=== PATIENT | female | born 1950 | race Caucasian/White ===

== ENCOUNTER → 2017-04-29 | Outpatient (CLI) | payer OTHER, MEDICARE ==
[~2017-04-29] MED LIST: ASPI-715 PO; MULT-820 PO
--- NOTE | 2017-04-29 15:32 | RADIOLOGY IMAGING REPORT ---
FACILITY: [facility] PATIENT NAME: Yessi Freitas : 1950 MR: [id number] V: [id number] EXAM DATE: ORDERING PHYSICIAN: ABBEY SHEIKH TECHNOLOGIST: Location: [facility] Patient: Yessi Freitas : 1950 Visit/Account:[id number] Date of Sevice: 04/29/2017 DEXA Scan Clinical history: Seen osteoporosis. Comparison: DEXA scan from 02/13/2015. LUMBAR SPINE: The bone mineral density (BMD) measured from L1-L4 correlates with a Z-score of 0.8 and a T-score of -0.5 which is Normal as defined by the World Health Organization. The corresponding risk of fracture in the lumbar spine is 1-2 times increased compared with a young adult reference population. This v alue has increase by 3.3 % since the prior study. More than 5% change is considered significant. HIP: Bone mineral density (BMD) measured in the LEFT total hip region correlates with a Z-score -0.5 and a T-score of -1.5 which is osteopenia as defined by the World Health Organization. The corresponding risk of fracture in the hip is 3 times increased compared to a young adult reference population. This value has increase by 0.1 % since the prior study. More than 5% change is considered significant. T score left femoral neck -1.5 Bone mineral density (BMD) measured in the Femoral Neck region measures 0.833 g/cm?. IMPRESSION: 1. Lumbar spine: Normal. There has been 3.3% increase in the bone mineral density since the previou s exam. 2. Left Total Hip: Osteopenia. There has been 0.1% increase in the bone mineral density since the p revious exam. 3. Femoral Neck: Bone Mineral Density is 0.833 g/cm? The next DEXA scan of this patient should include the following sites: L1-L4 and the left hip. FRAX? WHO Fracture Risk Assessment Tool link: <http://www.shef.ac.uk/FRAX/tool.jsp?locationValue=9> PLEASE NOTE: 1) The World Health Organization defines low BMD as follows: T-score Normal > -1 Osteopenia < -1 and > -2.5 Osteoporosis < -2.5 without fractures Established osteoporosis < -2.5 with fractures 2) In general, you may wish to consider: Diagnosis Treatment Follow-up DEXA Normal BMD Prevention 2-3 years Osteopenia Prevention/therapy 1-2 years Osteoporosis Therapy Yearly 3) Fracture risk estimated from the T-score is more accurate for vertebral fractures (often spontane ous) than for hip fractures. Report Dictated By: Page Otero MD at 04/29/2017 3:26 PM Report E-Signed By: Page Otero MD at 04/29/2017 3:28 PM WSN:[id number]
--- NOTE | 2017-04-30 11:09 | RADIOLOGY IMAGING REPORT ---
FACILITY: [facility] PATIENT NAME: SHARMAINE THOMAS : [id number] MR: [id number] V: [id number] EXAM DATE: ORDERING PHYSICIAN: ABBEY SHEIKH TECHNOLOGIST: May Sweeney PROCEDURE:BILATERAL DIGITAL SCREENING MAMMOGRAM WITH CAD ASSISTED INTERPRETATION & 3D TOMOSYNTHESIS COMPARISON:Prior mammograms 04/22/16, 04/10/15, 04/07/14, 03/11/13, 01/01/12, 12/28/10 INDICATIONS:SCREENING FINDINGS: Moderately heterogeneous fibroglandular tissue is seen throughout the breasts. The parenchymal pattern has remained stable allowing for difference in mammographic technique & patient positioning. There is no evidence of malignant appearing mass, malignant appearing calcifications or other secondary sign of malignancy in either breast. DIAGNOSTIC CATEGORY 2--BENIGN FINDING. RECOMMENDATIONS: ROUTINE MAMMOGRAM AND CLINICAL EVALUATION. IMPRESSION: BIRADS 2 : Benign finding No significant abnormality is seen Dictated by: Page Otero M.D. on 04/29/2017 at 17:19 Transcribed by: DIANA on 04/30/2017 at 9:20 Approved by: Page Otero M.D. on 04/30/2017 at 11:08 [facility]
== END ==
LOC: MAMO 01:12
PROVIDERS: ATTEND Nurse Practitioner Family
DX: Z13.820 Encounter for screening for osteoporosis (principal); Z12.31 Encounter for screening mammogram for malignant neoplasm of breast; M85.88 Other specified disorders of bone density and structure, other site
CPT/HCPCS: 77063; 77067; 77080

== ENCOUNTER → 2017-07-10 | Outpatient (CLI) | payer MEDICARE, OTHER ==
--- NOTE | 2017-07-10 11:35 | EKG ---
FACILITY: [facility] PATIENT NAME: SHARMAINE THOMAS : [id number] MR: [id number] V: [id number] EXAM DATE: ORDERING PHYSICIAN: ABBEY SHEIKH TECHNOLOGIST: MARTHA Rubin Reason : WELCOME TO MEDICARE Blood Pressure : / mmHG Vent. Rate : 059 BPM Atrial Rate : 059 BPM P-R Int : 170 ms QRS Dur : 082 ms QT Int : 388 ms P-R-T Axes : 059 020 036 degrees QTc Int : 384 ms Sinus bradycardia Septal infarct , age undetermined Abnormal ECG No previous ECGs available Confirmed by GEETA MARSH ([id number]) on 07/11/2017 11:22:37 AM Referred By: KORI Confirmed By:GEETA MARSH
== END ==
LOC: RESP 11:22
PROVIDERS: ATTEND Nurse Practitioner Family
DX: Z00.00 Encounter for general adult medical examination without abnormal findings (principal); R94.31 Abnormal electrocardiogram [ECG] [EKG]
CPT/HCPCS: 93005

== ENCOUNTER → 2018-05-12 | Outpatient (CLI) | payer MEDICARE, OTHER ==
--- NOTE | 2018-05-13 08:49 | RADIOLOGY IMAGING REPORT ---
FACILITY: [facility] PATIENT NAME: SHARMAINE THOMAS : [id number] MR: [id number] V: [id number] EXAM DATE: [id number] ORDERING PHYSICIAN: ABBEY SHEIKH TECHNOLOGIST: May Sweeney PROCEDURE:BILATERAL DIGITAL SCREENING MAMMOGRAM WITH CAD ASSISTED INTERPRETATION & 3D TOMOSYNTHESIS COMPARISON:Prior mammograms 04/29/17, 04/22/16, 04/10/15, 04/07/14, 03/11/13, 01/01/12. INDICATIONS:screening FINDINGS: The breasts are heterogeneously dense which can obscure small masses. The parenchymal pattern has remained stable allowing for difference in mammographic technique & patient positioning. DIAGNOSTIC CATEGORY 1--NEGATIVE. RECOMMENDATIONS: ROUTINE MAMMOGRAM AND CLINICAL EVALUATION. IMPRESSION: BIRADS 1: Negative. No significant abnormality is seen. Dictated by: Page Otero M.D. on 05/12/2018 at 16:13 Transcribed by: DIANA on 05/13/2018 at 8:44 Approved by: Page Otero M.D. on 05/13/2018 at 8:48 [facility]
== END ==
LOC: MAMO 01:08
PROVIDERS: ATTEND Nurse Practitioner Family
DX: Z12.31 Encounter for screening mammogram for malignant neoplasm of breast (principal)
CPT/HCPCS: 77063; 77067

== ENCOUNTER 2018-07-22 00:19 | Day surgery (SDC) | payer MEDICARE, OTHER ==
[~2018-07-22] VITALS: Ht 172.7 cm; Wt 71.2 kg
[~2018-07-22 00:19] MED LIST changes: +ACET500T68 PO; +BIOT5000 PO; +CALC-515 PO; +CHOL10005 PO; +L.AC1CAP6 PO; +MELA1TAB38 PO; +OMEG-96 PO; +PRAV20TA65 PO; +RALO60TA12 PO; +S-AD200T5 PO; +[UNRECOGNIZED DRUG - CODE] PO
[2018-07-22] MEDS ORDERED: PROPOFOL EMUL(*) 10MG/ML 20 ML 20 ML ONE (07:04)
[2018-07-22 09:30] VITALS: BP 128/90
[2018-07-22] MEDS ORDERED: NORMOSOL R SOLN(*) 1000 ML BAG 1,000 ML IV PRN (10:00)
[2018-07-22] MEDS ORDERED: LIDOCAINE/SOD BICARB 8.4% SYR ID ONE (10:00)
[2018-07-22 11:15] VITALS: BP 120/87
--- NOTE | 2018-07-22 11:22 | Short(Outpt) Discharge Summary ---
Discharge Summary Reason for Hosp/Final Diag: (1) Family history of colorectal cancer Hospital Course & Plan: Colonoscopy with polypectomy x2 completed without problems. Recommend colonoscopy in 5 years. Departure Discharge to: Home, Self Care Discharge Instructions Home Meds Reported Medications L.acidoph & Paracasei,B.lactis (Probiotic) 1 Each Capsule, TAB PO DAILY 07/16/18 Acetaminophen (TYLENOL EXTRA STRENGTH) 500 Mg Tablet, 500 MG PO DAILY for PAIN, TAB 07/16/18 Melatonin (Melatonin) 1 Mg Tablet.er, 1 MG PO HS 07/16/18 S-Adenosylmethionine Sul Tosyl (OSMIN-E) 200 Mg Tablet, 200 MG PO DAILY 07/16/18 Cholecalciferol (Vitamin D3) (VITAMIN D3) 1,000 Unit Tablet, 2500 UNIT PO DAILY, TAB 07/16/18 Calcium Carbonate (TUMS) 200 Mg Tab.chew, 200 MG PO DAILY, TAB.CHEW 07/16/18 Calcium Carb/Vitamin D3/Vit K1 (Viactiv 650 mg-12.5 Mcg Chew) 650 Mg Calcium- 12.5 Mcg-40 Mcg Tab.chew, 650 MG PO DAILY 07/16/18 Biotin (Biotin) 5,000 Mcg Tab.rapdis, 5000 MCG PO DAILY 07/16/18 Monument-3 Fatty Acids/Fish Oil (OMEGA 3 1,000 MG SOFTGEL) 1 Each Capsule, 1 EACH PO QDAY, CAPSULE 07/16/18 Pravastatin Sodium (PRAVACHOL) 20 Mg Tablet, 10 MG PO QDAY, TAB 07/16/18 Raloxifene Hcl (EVISTA) 60 Mg Tablet, 60 MG PO QDAY 07/16/18 Discontinued Reported Medications Cholecalciferol (Vitamin D3) (VITAMIN D3) 1,000 Unit Tablet, 2500 PO DAILY, TAB 07/16/18 Diet: Regular Activity: As Tolerated Special Instructions: Your colonoscopy was completed without problems and your prep was excellent (Good Job!!). I removed 2 small polyps from your colon and they were sent to pathology. My office will call you in the next week or two to let you know what the polyps are but, in any case, your next colonoscopy should be in 5 years due to your family history. GEETA CRISTINA MD July 22, 2018 11:22
[2018-07-22 11:30] VITALS: BP 136/88
[2018-07-22 11:45] VITALS: BP 142/97
[2018-07-22 12:02] VITALS: BP 137/87
[2018-07-22 12:03] VITALS: BP 144/87
--- NOTE | 2018-07-22 12:20 | NUR ---
1130 SBAR REPORT WAS RECEIVED FROM Calvin TALAMANTES RN. 1135 PATIENT IS RESTING IN THE BED AND EATING ICECHIPS 1150 PATIENT BEGAN EATING PUDDING AND IS TOLERATING THIS WELL 1212 IV WAS DC'D WITH CATH INTACT. 1220 PATIENT WAS TAKEN OUT VIA WHEELCHAIR. LUNGS ARE CLEAR. BOWEL SOUNDS ARE HYPERACTIVE. SHE STATES HER HEADACHE PAIN IS 2/10 AFTER STANDING AND MOVING AROUND. DENIES ANY NAUSEA. SEE DISCHARGE ASSESSMENT
--- NOTE | 2018-07-22 12:20 | NUR ---
1204 IV WAS SALINE LOCKED AND PATIENT BEGAN DRINKING DRESSED
== END 2018-07-22 12:20 | disposition home or self-care (01) ==
LOC: OR 00:19
PROVIDERS: ATTEND Surgery
DX: Z12.11 Encounter for screening for malignant neoplasm of colon (principal); K63.5 Polyp of colon; Z80.0 Family history of malignant neoplasm of digestive organs
CPT/HCPCS: 00811; 45385; 88305; J2704

== ENCOUNTER → 2018-08-11 | Outpatient (CLI) | payer MEDICARE, OTHER ==
--- NOTE | 2018-08-11 07:54 | EKG ---
FACILITY: [facility] PATIENT NAME: SHARMAINE THOMAS : [id number] MR: [id number] V: [id number] EXAM DATE: ORDERING PHYSICIAN: FUAD MOSES TECHNOLOGIST: SARA Test Reason : PRE OP Blood Pressure : / mmHG Vent. Rate : 059 BPM Atrial Rate : 059 BPM P-R Int : 178 ms QRS Dur : 078 ms QT Int : 404 ms P-R-T Axes : 071 024 037 degrees QTc Int : 399 ms Sinus bradycardia Septal infarct (cited on or before 10-JUL-2017) No ST-T abnormalities When compared with ECG of 10-JUL-2017 11:21, No significant change was found Confirmed by YAMILEX HARDY ([id number]) on 08/11/2018 11:48:29 AM Referred By: AURELIA Confirmed By:YAMILEX HARDY
== END ==
LOC: LAB 07:22
PROVIDERS: ATTEND Orthopaedic Surgery
DX: Z01.812 Encounter for preprocedural laboratory examination (principal); Z01.810 Encounter for preprocedural cardiovascular examination; M81.0 Age-related osteoporosis without current pathological fracture; M19.90 Unspecified osteoarthritis, unspecified site; M17.11 Unilateral primary osteoarthritis, right knee; R00.1 Bradycardia, unspecified
CPT/HCPCS: 36415; 81001; 82040; 82247; 82310; 82374; 82435; 82565; 82947; 84075; 84132; 84155; 84295; 84450; 84460; 84520; 93005

== ENCOUNTER 2018-09-08 00:32 | Observation (INO) | payer MEDICARE, OTHER ==
--- NOTE | 2018-09-01 16:19 | NUR ---
PC TO [facility] RE: OR COCKTAIL CONTAINING TORADOL D/T PT'S NSAID ALLERGY. KIRAN CHECKED PT'S PREVEN SURGERY AT [facility], PT HAS NOT REC'D BEFORE, CHOSE TO GO WITH OR COCKTAIL WITHOUT TORADOL, PROVIDER AWARE. ORDER ENTERED.
[2018-09-07 15:22] LABS: INR 0.94
[2018-09-08] VITALS (16 sets, daily range): BP systolic 107–144; BP diastolic 67–101
[~2018-09-08] VITALS: Ht 172.7 cm; Wt 73.0 kg
[2018-09-08] MEDS ORDERED: fentaNYL CITR 100 MCG/2 ML AMP ONE (07:19)
[2018-09-08] MEDS ORDERED: PROPOFOL EMUL(*) 10MG/ML 20 ML 20 ML ONE (07:19)
[2018-09-08] MEDS ORDERED: ONDANSETRON 4 MG/2 ML VIAL ONE (07:19)
[2018-09-08] MEDS ORDERED: DEXAMETHASONE SOD 4 MG/ML VIAL ONE (07:19)
[2018-09-08] MEDS ORDERED: LIDOCAINE MPF 1% 5 ML VIAL ONE (07:19)
[2018-09-08] MEDS ORDERED: KETAMINE HCL-NS 50 MG/5 ML SYR ONE (07:22)
[2018-09-08] MEDS ORDERED: KETAMINE HCL 200 MG/20 ML MDV ONE (07:43)
[2018-09-08] MEDS ORDERED: NORMOSOL R SOLN(*) 1000 ML BAG 1,000 ML IV PRN (09:30)
[2018-09-08] MEDS ORDERED: PREGABALIN 150 MG CAPSULE PO ONE (09:30)
[2018-09-08] MEDS ORDERED: ceFAZolin(*) 2GM/D5W 50ML 50 ML IVPB ONE (09:30)
[2018-09-08] MEDS ORDERED: ACETAMINOPHEN 500 MG TAB PO ONE (09:30)
[2018-09-08] MEDS ORDERED: BACITRACIN 50000 UNIT/VIAL 100,000 UNIT in NS 0.9% 3000 ML IRRIGATION BAG 3,000 ML IR ONE (09:30)
[2018-09-08] MEDS ORDERED: cloNIDine EPIDUR INJ 100MCG/ML 40 MCG, ROPIVACAINE 0.5% 20 ML VIAL 25 ML, EPINEPHrine H... INJ ONE (09:30)
[2018-09-08] MEDS ORDERED: LIDOCAINE/SOD BICARB 8.4% SYR ID ONE (09:30)
[2018-09-08] MEDS ORDERED: CELECOXIB 200 MG CAP PO ONE (09:30)
[2018-09-08] MEDS ORDERED: FAMOTIDINE 20 MG TAB PO ONE (09:30)
[2018-09-08] MEDS ORDERED: MIDAZOLAM 2 MG/2 ML VIAL IVP PRN (09:30)
[2018-09-08] MEDS ORDERED: TRANEXAMIC AC 1000 MG/10ML SDV 1,000 MG in DEXTROSE 5% 50 ML BAG 50 ML IV ONE (09:30)
[2018-09-08] MEDS ORDERED: GLYCOPYRROLATE 0.2MG/ML 1 ML INJ ONE ×2 (10:53→13:46)
[2018-09-08] MEDS ORDERED: KETOROLAC 30 MG/ML VIAL ONE (11:43)
[2018-09-08] MEDS ORDERED: PROMETHAZINE 25 MG/ML 1 ML AMP IVP PRN (12:30)
[2018-09-08] MEDS ORDERED: diphenhydrAMINE 50 MG/ML VIAL IVP PRN (12:30)
[2018-09-08] MEDS ORDERED: ONDANSETRON 4 MG/2 ML VIAL IVP PRN (12:30)
[2018-09-08] MEDS ORDERED: FLUSH 10 ML SYR IVP PRN (12:30)
[2018-09-08] MEDS ORDERED: MAGNESIUM CITRATE 300 ML BTL PO PRN (12:30)
[2018-09-08] MEDS ORDERED: LR 1000 ML BAG 1000 ML IV PRN (12:30)
[2018-09-08] MEDS ORDERED: BISACODYL 10 MG SUPP PR PRN (12:30)
[2018-09-08] MEDS ORDERED: MAGNESIUM HYDROXIDE* 30ML UDCP PO PRN (12:30)
[2018-09-08] MEDS ORDERED: ZOLPIDEM TARTRATE 5 MG TAB PO PRN (12:30)
[2018-09-08] MEDS ORDERED: HYDROmorphone HCL 2 MG/ML SDV IVP PRN (12:30)
[2018-09-08] MEDS ORDERED: diphenhydrAMINE 25 MG CAP PO PRN (12:30)
--- NOTE | 2018-09-08 12:56 | OPERATIVE REPORT 1 ---
EVENT DATE: September 08, 2018 SURGEON: Mack Ta MD ANESTHESIOLOGIST: Damion Mora MD ANESTHESIA: General plus spinal. COAGULATING BATH OPERATOR: JIMENEZ Rhodes, [employer] PREOPERATIVE DIAGNOSIS Right knee medial osteoarthritis. POSTOPERATIVE DIAGNOSIS Right knee medial osteoarthritis. PROCEDURE PERFORMED Right unicompartmental knee arthroplasty of the medial side. FINDINGS The patient had a significant amount of arthritic changes on the medial side but was amenable for a partial knee replacement. ESTIMATED BLOOD LOSS Minimal. DRAINS None. COMPLICATIONS None. TOURNIQUET TIME 53 minutes. IMPLANTS USED Wolfe unicompartmental knee arthroplasty with a size medium femur, a size C tibial tray and a 3 mm bearing. SPECIMENS None. INDICATIONS AND HISTORY This patient is a 67-year-old female that presented to my clinic for evaluation of knee pain and irritation going on for some time. She had tried conservative management and continued to have pain and problems despite conservative management so she wanted to go ahead with a right knee unicompartmental knee arthroplasty. We talked to her about a total knee versus a uni knee but since most of her problems were on the medial side and the rest of her cartilage looked pretty good, we decided to go ahead with the unicompartmental knee arthroplasty. She understands it may be converted to a total knee at another time if it continued to give her pain and problems. DESCRIPTION OF PROCEDURE The patient was brought into the operating room. She and the procedure were both verified. She was given by anesthesia and then placed supine on the operating table and then was induced and intubated by anesthesia. The right lower extremity was prepped and draped in the usual fashion and a time-out was observed, verifying the correct patient and procedure. The standard incision was made over the anterior aspect of the knee after inflation of the tourniquet. It was taken through the skin and subcutaneous tissue and I was able to cauterize bleeders throughout this entire area. Once I did this, I was then able to make a medial parapatellar approach in the standard fashion without any difficulty and then we cauterized some bleeders and removed a significant portion of the patellar fat pad underneath the patella. I then removed the anterior aspect of the medial meniscus and peeled back just a little bit of the medial tissue in order to gain access to the proximal tibia. I then removed osteophytes from both the proximal tibia as well as the distal femur. I was then able to size the femur to a size medium. This was then followed by placement of the extramedullary guide in order to cut the proximal tibia. I pinned that in place and then cut the proximal tibia without any difficulty. Once I did this, I was able to remove that piece without any major issues. I then turned attention towards the femur, where I drilled the intramedullary drill and then put in the intramedullary guide. I then put in the 4 setting on the spacing sizer and then put in the guide pin that connects the two together to the intramedullary chrissy. I then drilled the large and small holes within that guide and then removed the drill bits and removed the guide. This was then followed by placement of a 0 spigot in this area and reaming to 0. I then trialed the components and the 3 was a little bit tight in extension but looked pretty good in flexion so, therefore, we then put on the #2 spigot and was able to ream that done and then everything fit significantly better and we had good tracking associated with it. I then as able to put on the posterior cutting guide associated with the Wolfe system and then remove the posterior osteophytes and remove the rest of the posterior meniscus. This looked significantly better and then we put on the secondary guide to drill and ream on the distal femur. I then removed all osteophytes that were remaining and made sure there were no signs of high points. I then put in the tibial tray and sized it to a C. I then used the toothbrush saw and then used the standard guide in order to put the trial in. Once we did the final trial components, it was sized well to a 3 mm poly so this was what was chosen. I then cemented in the proximal tibia as well as the distal femur in that order, made sure there was no excess cement and then let the cement harden with the 4 spoon guide in between the two while the cement hardened. Once the cement was hardened, I then removed the spoon guide and then put in the trial 3 again. This looked pretty good and had no signs of problems or issues so, therefore, we put in the final component, which was a 3 mm guide. We then put it through a range of motion. There were no signs of issues. The patella tracked very well. We irrigated with a copious amount of saline, which we had throughout the case, with pulsatile lavage and then was able to close the parapatellar approach using a #2 Quill. This was then followed by 2-0 Vicryl in the fat layer and then a 2-0 Stratafix in the subcutaneous layer and a subcuticular 4-0 running Monocryl with a bio-occlusive dressing was applied. Tourniquet was let down after 53 minutes after we had cemented and made sure there were no obvious bleeders associated with the skin and the lesions and then the patient was awakened and extubated and transferred to PACU in stable condition, where she will be admitted overnight. RIP
--- NOTE | 2018-09-08 14:23 | RADIOLOGY IMAGING REPORT ---
FACILITY: [facility] [place] PATIENT NAME: Yessi Freitas : 1950 MR: [id number] V: [id number] EXAM DATE: ORDERING PHYSICIAN: FUAD MOSES TECHNOLOGIST: Location: [facility] [place] Patient: Yessi Freitas : 1950 Visit/Account:[id number] Date of Sevice: 09/08/2018 Study: KNEE LIMITED RIGHT Indication: Status post partial knee replacement Comparison study: None available Findings: AP and lateral views of the right knee demonstrates the patient is status post replacement of the medial femoral tibial joint space. There are postoperative changes present. There is no eviden ce of acute bony abnormality identified. IMPRESSION: Status post partial right knee replacement. There is no evidence of acute bony abnormalit y. Report Dictated By: Temo Ghosh at 09/08/2018 2:15 PM Report E-Signed By: Temo Ghosh at 09/08/2018 2:16 PM WSN:[id number]
--- NOTE | 2018-09-08 15:05 | Hospitalist Consultation ---
History of Present Illness Requesting Physician Dr. Ta Reason for Consult Medical Management Chief Complaint s/p right unicompartmental knee replacement History of Present Illness She was admitted s/p right unicompartmental knee replacement. It is reported the surgery went well and without complication. History Problems: (1) Hyperlipidemia Status: Chronic (2) Headache Status: Chronic (3) Osteoporosis Status: Chronic Home Meds Reported Medications L.acidoph & Paracasei,B.lactis (Probiotic) 1 Each Capsule, TAB PO DAILY 07/16/18 Acetaminophen (TYLENOL EXTRA STRENGTH) 500 Mg Tablet, 500 MG PO DAILY for PAIN, TAB 07/16/18 Melatonin (Melatonin) 1 Mg Tablet.er, 1 MG PO HS 07/16/18 S-Adenosylmethionine Sul Tosyl (OSMIN-E) 200 Mg Tablet, 200 MG PO DAILY 07/16/18 Cholecalciferol (Vitamin D3) (VITAMIN D3) 1,000 Unit Tablet, 2500 UNIT PO DAILY, TAB 07/16/18 Calcium Carbonate (TUMS) 200 Mg Tab.chew, 200 MG PO DAILY, TAB.CHEW 07/16/18 Calcium Carb/Vitamin D3/Vit K1 (Viactiv 650 mg-12.5 Mcg Chew) 650 Mg Calcium- 12.5 Mcg-40 Mcg Tab.chew, 650 MG PO DAILY 07/16/18 Biotin (Biotin) 5,000 Mcg Tab.rapdis, 5000 MCG PO DAILY 07/16/18 Renick-3 Fatty Acids/Fish Oil (OMEGA 3 1,000 MG SOFTGEL) 1 Each Capsule, 1 EACH PO QDAY, CAPSULE 07/16/18 Pravastatin Sodium (PRAVACHOL) 20 Mg Tablet, 10 MG PO QHS, TAB 07/16/18 Raloxifene Hcl (EVISTA) 60 Mg Tablet, 60 MG PO QHS 07/16/18 Allergies: Coded Allergies: clarithromycin (Verified Allergy, Unknown, 07/16/18) piroxicam (Verified Allergy, Unknown, 12/03/13) Patient History: Colorectal cancer Hx Smoking: Yes (LIGHT SMOKER FOR 2 YEARS) Smoking Status: Former Smoker When Quit Tobacco?: 1972 Caffeine Intake: Tea, Soda Caffeine/Cups Per Day: 8-10 SERVINGS PER DAY Hx Alcohol Use: No Hx Substance Use Disorder: No Review of Systems All Systems Reviewed/Normal: Yes, Except as Noted Neurological: Other (headache) Exam Vital Signs Vital Signs Date Time Temp Pulse Resp B/P (MAP) Pulse Ox O2 Delivery O2 Flow Rate FiO2 09/08/18 14:45 69 130/81 (97) 92 Room Air 09/08/18 14:00 1.0 09/08/18 13:39 96.9 12 General Appearance: Alert, Awake, No Acute Distress, Afebrile Cardiovascular: Regular Rate and Rhythm Respiratory: No Respiratory Distress, Clear to Auscultation Psych: Appropriate Mood & Affect Assessment and Plan Problems: (1) S/P right unicompartmental knee replacement Status: Acute Assessment & Plan: Followed by Dr. Ta. She will be placed on Aspirin for DVT prophylaxis. (2) Hyperlipidemia Status: Chronic Assessment & Plan: Continue chronic Pravastatin. (3) Headache Status: Chronic Assessment & Plan: She has history of chronic headaches. She reports she usually treats with Tylenol. She does have headache post-operatively. Likely related to caffeine. She reports usually 8-10 cups of caffeine daily. (4) Osteoporosis Status: Chronic Assessment & Plan: She is on chronic treatment with Evista. Would recommend she hold Evista for two weeks secondary to increased risk of blood clots. She can co ntinue Vitamin D and Calcium. Venous Thromboembolism Antithrombotics Is Pt On Any Antithrombotics?: No MARANDA LANDERS NET FISHER Sep 08, 2018 15:05
[2018-09-08] MEDS: oxyCODON/ACET (*)5/325MG (CII) 1 TAB TAB PO PRN (15:38)
--- NOTE | 2018-09-08 16:14 | NUR ---
Physical Therapy Impression PT eval completed. Pt primarily limited by nausea with movement but requested to transfer to bedside commode despite this. Pt tolerated this with CGA/Min assist and performed side stepping at EOB as well before return to bed. Nursing available throughout to assist with medication and conservative techniques to manage emesis. Physical Therapy Goals Patient's Goals
[2018-09-08] MEDS: ceFAZolin(*) 1 GM VIAL 1 GM in NS(*) 0.9% 100 ML MINI-BAG 100 ML IVPB SCH (16:45)
[2018-09-08] MEDS ORDERED: ASPIRIN 325 MG TAB PO SCH (21:00)
[2018-09-08] MEDS ORDERED: PRAVASTATIN SOD 20 MG TAB PO SCH (21:00)
[2018-09-09 00:07] VITALS: BP 104/68
[2018-09-09] MEDS: ceFAZolin(*) 1 GM VIAL 1 GM in NS(*) 0.9% 100 ML MINI-BAG 100 ML IVPB SCH ×2 (00:54→09:08)
[2018-09-09 03:48] VITALS: BP 106/69
[2018-09-09] MEDS ORDERED: ASPI-757 PO (08:25)
[2018-09-09] MEDS ORDERED: OXYC-865 PO (09:05)
[2018-09-09] MEDS: oxyCODON/ACET (*)5/325MG (CII) 1 TAB TAB PO PRN ×2 (09:08→13:17)
--- NOTE | 2018-09-09 09:47 | Hospitalist Progress Note ---
Subjective Progress Notes Subjective She was admitted s/p Medial knee replacement. She had no acute events overnight. Patient Complains of: Cardiovascular: No: Chest Pain Respiratory: No: Shortness of Breath Physical Exam Vital Signs Date Time Temp Pulse Resp B/P (MAP) Pulse Ox O2 Delivery O2 Flow Rate FiO2 09/09/18 09:08 93 Room Air 09/09/18 03:48 97.9 77 20 106/69 (81) 09/08/18 14:00 1.0 Intake and Output 09/09/18 07:02 Intake Total 2100 ml Output Total 120 ml Balance 1980 ml Intake Oral 300 ml IV Total 1800 ml Output Emesis 120 ml # Voids 2 General Appearance: Alert, Awake, No Acute Distress, Afebrile Neuro: No Gross deficits Cardiovascular: Regular Rate and Rhythm Respiratory: No Respiratory Distress, Clear to Auscultation GI: Soft and Non-Tender Psych: Alert & Oriented X3, Appropriate Mood & Affect Result Diagram: 09/09/18 0542 Assessment and Plan Problems: (1) S/P right unicompartmental knee replacement Status: Acute Assessment & Plan: Followed by Dr. Ta. She will be placed on Aspirin for DVT prophylaxis. (2) Hyperlipidemia Status: Chronic Assessment & Plan: Continue chronic Pravastatin. (3) Headache Status: Chronic Assessment & Plan: She has history of chronic headaches. She reports she usually treats with Tylenol. She had a headache post-operatively. Likely related to caffeine. She reports usually 8-10 cups of caffeine daily. (4) Osteoporosis Status: Chronic Assessment & Plan: She is on chronic treatment with Evista. Would recommend she hold Evista for two weeks secondary to increased risk of blood clots. She can continue Vitamin D and Calcium. Exam Sepsis Risk: No Definite Risk MARANDA LANDERS STAVE LOG RIPSAW OPERATOR Sep 09, 2018 09:47
--- NOTE | 2018-09-09 14:03 | NUR ---
Physical Therapy Impression PT goals met. From a mobility stand point pt is ready for discharge. Out pt PT scheduled for 09/17/18 however, [facility] will attempt to get her in sooner if possible and will call pt to arrange this. Physical Therapy Goals 1. Pt to be SBA/CGA for bed mobility and sup to/from sit 2. Pt to be SBA/CGA for sit to/from stand 3. Pt to be SBA/CGA for ambulation x 100' with FWW 4. Pt to [place] up/down single platform step to simulate curb in environment, with SBA/CGA Patient's Goals
== END 2018-09-09 14:33 | disposition home or self-care (01) ==
LOC: OR 00:32 → MED 13:30
PROVIDERS: ADMIT Orthopaedic Surgery; ATTEND Orthopaedic Surgery
DX: M17.11 Unilateral primary osteoarthritis, right knee (principal); E78.5 Hyperlipidemia, unspecified; M81.0 Age-related osteoporosis without current pathological fracture; R51 Headache
CPT/HCPCS: 27446; 36415; 73560; 85014; 85018; 85610; 86850; 86900; 86901; 97116; 97161; 97530; A9270; C1713; C1776; G0378; J0171; J0690; J0735; J1100; J1885; J2001; J2250; J2405; J2550; J2704; J2795; J3010; J3490; J7050; J7060; J7120